=== PATIENT | male | born 1945 | race Caucasian/White ===

== ENCOUNTER 2017-05-01 06:38 | Day surgery (SDC) | payer OTHER ==
[~2017-05-01] VITALS: Ht 177.8 cm; Wt 91.6 kg
--- NOTE | ~2017-05-01 | O ---
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 PROCEDURE: Bilateral lower lid ectropion repair with transconjunctival right lower lid and cheek lift. SURGEON: Silvino Corea MD RESIDENTIAL COUNSELOR: None. ANESTHESIA: MAC. COMPLICATIONS: None. INDICATIONS FOR SURGERY: This pleasant 71-year-old gentleman has bilateral lower lid ectropion with separate right lower lid retraction, lagophthalmos and keratopathy. He presents today for a bilateral lower lid ectropion repair combined with a transconjunctival right lower lid and cheek lift in order to attempt to preserve his ocular surface milieu, quality of vision, and level of comfort. Informed consent was obtained to include but not limited to potential risk for loss of vision, bleeding, infection, failure to improve the problem, the potential need for further surgery or treatment. DESCRIPTION OF PROCEDURE: The patient was taken to the operating room where 2% Xylocaine with epinephrine mixed with equal parts of 0.75% Marcaine with Wydase was administered transcutaneously and transconjunctivally to each lower lid and lateral canthus. On the right side, the medial canthus and the cheek, in addition to the infratemporal fossa were anesthetized. The patient was subsequently prepped and draped in the usual sterile fashion. The left lateral canthus was then clamped with a Enriquez clamp. A sharp canthotomy and cantholysis was subsequently performed. Hemostasis was achieved with diligent pinpoint monopolar cautery as it was throughout the case. A [address] [address] OPERATIVE REPORT Name: SILVINO BAH Room #: 150-6 [facility].#: [id number] Admission: 05/01/17 Attend Phys: Silvino Corea MD Discharge: Date of : 43 Report #: [id number] tarsal strip was then prepared laterally, removing the lash bearing portion of the redundant lid margin and the redundant tarsal plate. The redundant tarsal plate was extensive in this situation. Hemostasis was then re-achieved. The tarsal plate was then resuspended to the internal portion of the lateral orbital tubercle with interrupted 5-0 Prolene sutures. The subcutaneous structures and the skin were then advanced and closed with interrupted 6-0 plain gut sutures. The right lateral canthus was then clamped with a Enriquez clamp. A sharp canthotomy and cantholysis was subsequently accomplished. Hemostasis was achieved with diligent pinpoint monopolar cautery. A tarsal strip was then prepared laterally, removing the lash bearing portion of the redundant lid margin and the redundant tarsal plate. Hemostasis was then re-achieved. A transconjunctival incision was then made below the inferior border of the tarsal plate. The dissection was then carried out, primarily utilizing sharp techniques into the premalar space. Hemostasis was then re-achieved. The lower lid and cheek tissues were then elevated and resuspended with interrupted mattress 5-0 chromic sutures. This lifted the lower lid and cheek well. The tarsal strip was then secured to the internal portion of the lateral orbital tubercle with interrupted 5-0 Prolene sutures. The subcutaneous structures and the skin were then advanced and closed with interrupted 6-0 plain gut sutures. The wounds were then cleaned and dressed with erythromycin ophthalmic ointment and the patient subsequently transported to the recovery area having tolerated the procedures well with no anesthetic or operative complications being noted. By: [id number] Silvino Corea MD /bailey
[~2017-05-01 06:38] MED LIST: ASPIRIN81 M2 PO; CENTRUM SILVER1 EAC4 PO; FENOFIBRATE160 MG PO; GARLIC100 MG PO; METFORMIN HCL1000 MG PO
[2017-05-01 06:45] VITALS: BP 136/62
== END 2017-05-01 09:58 | disposition home or self-care (01) ==
LOC: OR 06:38 → TBA 06:38 → OR 09:58
DX: H02.105 Unspecified ectropion of left lower eyelid (principal); H02.102 Unspecified ectropion of right lower eyelid; H02.532 Eyelid retraction right lower eyelid; H02.202 Unspecified lagophthalmos right lower eyelid; H18.9 Unspecified disorder of cornea; E78.5 Hyperlipidemia, unspecified; E11.9 Type 2 diabetes mellitus without complications; Z87.891 Personal history of nicotine dependence; Z85.828 Personal history of other malignant neoplasm of skin; Z96.653 Presence of artificial knee joint, bilateral; Z98.890 Other specified postprocedural states; Z79.82 Long term (current) use of aspirin; Z79.899 Other long term (current) drug therapy
CPT/HCPCS: 50010; 50101; 50386; 50398; 51636; 56527; 56531; 62110; 62850; 70005